=== PATIENT | female | born 1995 | race Caucasian/White ===

== ENCOUNTER 2016-12-29 21:42 | Emergency (ER) | payer OTHER ==
[2016-12-29 22:54] VITALS: BP 121/78
== END 2016-12-29 22:54 | disposition home or self-care (01) ==
LOC: ED 21:42
DX: K08.1 Complete loss of teeth (principal); R22.0 Localized swelling, mass and lump, head

== ENCOUNTER → 2017-06-13 | Outpatient (CLI) | payer OTHER | END | disposition home or self-care (01) | LOC: LB 16:45 | DX: N92.6 Irregular menstruation, unspecified (principal); R35.8 Other polyuria ==

== ENCOUNTER → 2017-08-21 | Outpatient (CLI) | payer OTHER | END | disposition home or self-care (01) | LOC: LB 15:11 | DX: Z01.419 Encounter for gynecological examination (general) (routine) without abnormal findings (principal); Z11.3 Encounter for screening for infections with a predominantly sexual mode of transmission | CPT/HCPCS: 86694; 87491; 87591 ==

== ENCOUNTER 2017-08-25 12:35 | Emergency (ER) | payer OTHER ==
[~2017-08-25] VITALS: Ht 160 cm; Wt 95.2 kg
[2017-08-25 12:42] VITALS: BP 110/71; Ht 160 cm; Wt 95.2 kg
== END 2017-08-25 16:28 | disposition home or self-care (01) ==
LOC: ED 12:35
DX: L02.415 Cutaneous abscess of right lower limb (principal)
CPT/HCPCS: J2001

== ENCOUNTER 2017-08-27 13:25 | Emergency (ER) | payer OTHER ==
[~2017-08-27] VITALS: Ht 160 cm; Wt 95.2 kg
[2017-08-27 13:38] VITALS: BP 112/60; Ht 160 cm; Wt 95.2 kg
== END 2017-08-27 15:26 | disposition home or self-care (01) ==
LOC: ED 13:25
DX: Z48.00 Encounter for change or removal of nonsurgical wound dressing (principal)

== ENCOUNTER 2018-05-11 17:20 | Emergency (ER) | payer OTHER ==
[~2018-05-11] VITALS: Ht 160 cm; Wt 97.5 kg
[2018-05-11 17:49] VITALS: Ht 160 cm; Wt 97.5 kg
[2018-05-11 19:09] VITALS: BP 120/68
== END 2018-05-11 19:09 | disposition home or self-care (01) ==
LOC: ED 17:20
DX: S20.219A Contusion of unspecified front wall of thorax, initial encounter (principal); W50.1XXA Accidental kick by another person, initial encounter; Y93.89 Activity, other specified; Y92.89 Other specified places as the place of occurrence of the external cause; Y99.8 Other external cause status

== ENCOUNTER 2019-01-20 11:19 | Emergency (ER) | payer OTHER ==
[~2019-01-20] VITALS: Ht 160 cm; Wt 90.4 kg
[2019-01-20 11:27] VITALS: Ht 160 cm; Wt 90.4 kg
[2019-01-20 13:28] LABS: PLATELET COUNT 301 x10^3mcL (130-400); RED CELL DISTRIBUTION WIDTH 14.1 % (11.5-14.5)
[2019-01-20 13:38] LABS: CALCIUM 7.8 mg/dL (8.5-10.1); CARBON DIOXIDE 24.7 mmol/L (21-32); CHLORIDE SERUM 99 mmol/L (98-107); GFR1 > 60 mL/min; GLUCOSE SERUM 110 mg/dL (74-106); POTASSIUM SERUM 3.3 mmol/L (3.5-5.1); SODIUM SERUM 135 mmol/L (136-145)
[2019-01-20 13:45] LABS: ALBUMIN 3.4 g/dL (3.4-5.0); ALKALINE PHOSPHATASE 108 U/L (46-116); ALT/SGPT 24 U/L (14-59); AST/SGOT 11 U/L (15-37); BILIRUBIN TOTAL 0.6 mg/dL (0.20-1.00); TOTAL PROTEIN, SERUM 7.5 g/dL (6.4-8.2)
[2019-01-20 14:53] LABS: UA SPECIFIC GRAVITY <=1.005 (1.005-1.035); microscopic required? YES; urine erythrocyte TRACE (NEGATIVE)
[2019-01-20 15:02] LABS: MONOCYTE 3 % (0-7); SEGMENTED NEUTROPHILS 84 % (37-75)
[2019-01-20 15:03] LABS: rbc morphology (normal/abnorm) NORMAL (NORMAL)
[2019-01-20 16:20] VITALS: BP 132/79
== END 2019-01-20 16:20 | disposition home or self-care (01) ==
LOC: ED 11:19
PROVIDERS: Emergency Medicine
DX: N10 Acute pyelonephritis (principal); M79.10 Myalgia, unspecified site
CPT/HCPCS: J0696; J7030

== ENCOUNTER 2019-01-21 22:47 | Emergency (ER) | payer OTHER ==
[~2019-01-21] VITALS: Ht 160 cm; Wt 91.2 kg
[2019-01-21 22:57] VITALS: Ht 160 cm; Wt 91.2 kg
[2019-01-21 23:45] LABS: BASOPHIL % 0.3 % (0-2); PLATELET COUNT 274 x10^3mcL (130-400); RED CELL DISTRIBUTION WIDTH 14.2 % (11.5-14.5)
[2019-01-21 23:53] LABS: CALCIUM 7.8 mg/dL (8.5-10.1); CARBON DIOXIDE 26.4 mmol/L (21-32); CHLORIDE SERUM 106 mmol/L (98-107); CREATININE SERUM 0.8 mg/dL (0.6-1.0); GFR1 > 60 mL/min; GLUCOSE SERUM 110 mg/dL (74-106); POTASSIUM SERUM 3.5 mmol/L (3.5-5.1); SODIUM SERUM 141 mmol/L (136-145)
[2019-01-21 23:58] LABS: ALBUMIN 2.6 g/dL (3.4-5.0); ALKALINE PHOSPHATASE 104 U/L (46-116); ALT/SGPT 29 U/L (14-59); AST/SGOT 12 U/L (15-37); TOTAL PROTEIN, SERUM 6.5 g/dL (6.4-8.2)
[2019-01-22 01:41] LABS: UA SPECIFIC GRAVITY 1.025 (1.005-1.035); microscopic required? YES; urine erythrocyte TRACE (NEGATIVE)
[2019-01-22 02:02] VITALS: BP 100/64
== END 2019-01-22 02:02 | disposition home or self-care (01) ==
LOC: ED 22:47
PROVIDERS: Emergency Medicine
DX: N12 Tubulo-interstitial nephritis, not specified as acute or chronic (principal)
CPT/HCPCS: J0696; J1885; J7030; J7060